=== PATIENT | female | born 1955 | race Caucasian/White ===

== ENCOUNTER → 2016-06-14 | Outpatient (CLI) | payer MEDICARE, OTHER ==
--- NOTE | 2016-06-14 09:26 | XR ---
EXAMINATION TYPE: XR lumbar spine with bend/flex DATE OF EXAM: 06/14/2016 9:19 AM CLINICAL HISTORY: Severe back pain TECHNIQUE: Frontal, lateral, and dynamic flexion and extension lateral images of the lumbar spine are obtained. COMPARISON: Lumbar spine x-ray May 20, 2014 FINDINGS: There are 5 lumbar type vertebral bodies redemonstrated. Osseous structures are deminerali zed which is noted low radiographic sensitivity Severe levoconvex scoliosis centered at mid to lower lumbar spine is again seen. There is advanced compression type fracture near lumbosacral junction red emonstrated at peak of curvature. Severe multilevel disc space narrowing there are thoracolumbar junc tion is redemonstrated. Facet arthropathy is redemonstrated in lower lumbar levels. Dynamic flexion a nd extension views show limited flexion and extension without significant change. Cholecystectomy cli ps are seen overlying soft tissue. IMPRESSION: Scoliosis and advanced degenerative changes as detailed above.
--- NOTE | 2016-06-14 09:29 | XR ---
EXAMINATION TYPE: XR thoracic spine 2V DATE OF EXAM: 06/14/2016 9:19 AM CLINICAL HISTORY: Severe mid back pain. TECHNIQUE: Frontal and lateral view of thoracic spine are obtained. COMPARISON: CTA chest January 24, 2016. FINDINGS: Thoracic spine show loss of normal thoracic kyphosis without evidence of acute fracture or dislocation. There is scoliotic curvature centered in the lumbar spine redemonstrated. Vertebral body heights are preserved. There is disc space narrowing lower thoracic levels. There is mild multilevel anterior spurring in the mid to lower lumbar spine. There is more moderate right lateral spurring in the lower thoracic spine. Visualized ribs are unremarkable. IMPRESSION: Degenerative changes as detailed above without significant change from prior chest CT.
== END | disposition home or self-care (01) ==
LOC: RADMRIMAIN 08:17
PROVIDERS: ATTEND Psychiatry & Neurology Neurology
DX: M47.816 Spondylosis without myelopathy or radiculopathy, lumbar region (principal); M51.34 Other intervertebral disc degeneration, thoracic region; M51.36 Other intervertebral disc degeneration, lumbar region; M41.9 Scoliosis, unspecified
CPT/HCPCS: 72070; 72114

== ENCOUNTER → 2019-06-01 | Outpatient (CLI) | payer MEDICARE, OTHER ==
--- NOTE | 2019-06-03 13:25 | MM ---
Reason for exam: screening (asymptomatic). Last mammogram was performed 5 years and 2 months ago. History: Patient is postmenopausal. Physical Findings: A clinical breast exam by your physician is recommended on an annual basis and results should be correlated with mammographic findings. MG 3D Screening Mammo W/Cad Bilateral CC and MLO view(s) were taken. Prior study comparison: April 10, 2014, bilateral MG diagnostic mammo w CAD [facility]. February 18, 2011, [facility] DIGITAL BILATERAL MAMMOGRAM w/CAD. There are scattered fibroglandular densities. There is chronic nodularity bilaterally. Benign oil cyst calcifications left breast. No significant changes when compared with prior studies. ASSESSMENT: Negative, BI-RAD 1 RECOMMENDATION: Routine screening mammogram of both breasts in 1 year.
== END | disposition home or self-care (01) ==
LOC: RADMAMWWP 14:42
PROVIDERS: ATTEND Internal Medicine
DX: Z12.31 Encounter for screening mammogram for malignant neoplasm of breast (principal)
CPT/HCPCS: 77063; 77067

== ENCOUNTER → 2020-03-21 | Outpatient (CLI) | payer MEDICARE, OTHER ==
[2020-03-21 09:04] VITALS: BP 119/79; PULSE 95; RESP 18; TEMP 97.6
--- NOTE | 2020-03-21 10:06 | P.HPOB ---
History of Present Illness H&P Date: 03/21/20 Chief Complaint: The patient is here for her routine gynecologic exam. This is a 64-year-old with an LMP of 2000. The patient is here to establish with this office. She states it has been about 5 years since her last pelvic exam. She has been experiencing intermittent vaginal and pelvic pains and she believes this has been occurring for the past 2 months. She describes the pains is crampy and piercing. They typically last 1 or 2 minutes and are not noticed every day. She cannot think of any activities that seem to be associated with the pains. At times he can feel severe and are rated at 6 out of 10. Currently is 0 out of 10. She is denying any urinary symptoms such as dysuria or urinary urgency. Review of Systems She denies weight change. She denies respiratory or cardiac problems. GI: She has been told she has a "slow stomach" but states she moves her bowels about once a day. : She denies urinary symptoms as above. Past Medical History Past Medical History: Fibromyalgia, GERD/Reflux, Hypertension, Musculoskeletal Disorder, Osteoarthritis (OA), Renal Disease Additional Past Medical History / Comment(s): RAYNAUD'S - AFFECTS TONGUE AND FINGERS. BACK PROBLEMS, scoliosis, sciatica down L leg, HAS 2 KIDNEY STONES ON RT SIDE, insomnia, migraines in past, diverticular dx, sinus problems, R knee "locks up" at times and has caused falls. 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 History of Any Multi-Drug Resistant Organisms: None Reported Past Surgical History: Cholecystectomy, Orthopedic Surgery, Tonsillectomy Additional Past Surgical History / Comment(s): EGDs with bx, [id number], bilateral knee arthroscopies, pain clinic procedures for back. Past Anesthesia/Blood Transfusion Reactions: Motion Sickness Past Psychological History: Anxiety, Depression Additional Psychological History / Comment(s): Pt states she lives with a friend otherwise she would be homeless. She has financial stressors. She drives. She states she has depression and anxiety but is not suicidal-no thoughts, no plans. Smoking Status: Current every day smoker (1 pack per day) Past Alcohol Use History: None Reported Additional Past Alcohol Use History / Comment(s): Pt started smoking in 1980 and was over a ppd smoker. Past 2 weeks she has decreased to 10 cigarettes a day. Past Drug Use History: Marijuana Additional Drug Use History / Comment(s): Pt states she occasionally will smoke medical marijuana. Additional History: She is and is not seeing anybody at this time. She has not been sexually active since around 2009. 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 - Past Family History Father Family Medical History: Cancer Additional Family Medical History / Comment(s): Prostate cancer. Mother Family Medical History: Dementia, Hyperlipidemia, Osteoarthritis (OA) Additional Family Medical History / Comment(s): Maternal grandmother had an OR. Medications and Allergies Home Medications Medication Instructions Recorded Confirmed Type Esomeprazole Magnesium [NexIUM] 40 mg PO W/SUPPER 04/10/14 03/21/20 History oxyCODONE HCL [Oxycodone HCl ER] 10 mg PO TID 04/17/14 03/21/20 History QUEtiapine [SEROquel] 200 mg PO HS 09/13/14 03/21/20 History Ibuprofen [Motrin] 200 - 400 mg PO Q6HR PRN 01/24/16 03/21/20 History Baclofen 10 mg PO HS 03/21/20 03/21/20 History Multivitamin/Iron/Folic Acid 1 each PO DAILY 03/21/20 03/21/20 History [Centrum Women Tablet] Allergies Allergy/AdvReac Type Severity Reaction Status Date / Time Penicillins Allergy Unknown Swelling Verified 03/21/20 09:01 Sulfa (Sulfonamide Allergy Unknown Swelling Verified 03/21/20 09:01 Antibiotics) Exam Vital Signs Temp Pulse Resp BP Pulse Ox 03/21/20 09:01 97.6 F 95 18 119/79 95 Intake and Output 03/20/20 03/21/20 03/21/20 22:59 06:59 14:59 Other: Weight 69.853 kg Height 5 feet 3 inches, weight 154 pounds, BMI 27.3. This is a well-developed well-nourished white female who is alert and oriented times 3 in no acute distress. HEENT: Within normal limits. NECK: Supple without mass or thyromegaly. CHEST AND LUNGS: Clear to auscultation. HEART: Regular rate and rhythm. BREASTS: Are without mass or discharge. AXILLARY EXAM: Negative for adenopathy. BACK: Negative for CVA tenderness. ABDOMEN: Soft, nontender, without palpable masses. PELVIC EXAM: Normal external genitalia with mild atrophy. Cervix and vagina appear normal is mild atrophy. There is no cervical motion tenderness. There is no unusual discharge. There is no evidence of prolapse. The uterus is midposition, mildly enlarged approximately 8-10 week size and nontender. There are no palpable adnexal masses or tenderness. RECTAL EXAM: Rectovaginal exam is negative for mass or tenderness and is negative for occult blood. EXTREMITIES: Nontender. IMPRESSION: 1. 64-year-old menopausal female with a 2 month history of intermittent pelvic pains which are described as crampy and occasionally piercing. There are no significant physical findings at this time and she denies having pain at this time. Differential diagnosis will include GI pain, non-palpable adnexal mass, discomfort from a uterine fibroid and possible urinary tract infection. 2. Mild uterine enlargement approximately 8-10 weeks size. Possible uterine fibroids. PLAN: 1. Pap smear cotest was performed. 2. Self breast awareness was discussed with the patient. 3. Screening mammogram will be due in May 2020. The order slip was given to the patient for this. She had a normal mammogram on 06/01/2019. 4. Urine has been obtained for urinalysis with culture and sensitivity. 5. Pelvic ultrasound is recommended and the order slip was given to the patient for this. 6. If the pelvic ultrasound and urine testing is negative, I would believe that her pain is non-gynecologic and more likely GI related. 7. I have recommended that she quit smoking. 8. She was advised to return in one year for her annual well woman exam and as needed.
--- NOTE | 2020-03-22 15:47 | P.PN ---
Progress Note - Text Progress Note Date: 03/22/20 Urinalysis done 03/21/20 had minor findings without definitive signs of a UTI. Will await urine culture. This message was left on the patiet's voice mail. Pelvic US is scheduled for 03/27/20.
--- NOTE | 2020-03-28 10:26 | P.PN ---
Progress Note - Text Progress Note Date: 03/28/20 OUTPATIENT FOLLOW-UP NOTE TEST(S)/RESULTS: Test results from 03/21/2020 include negative Pap smear cotest, urinalysis showing trace leukocyte esterase and small amount of blood and 7 rbc's per high-power field. Urine culture was negative. Pelvic ultrasound showed a normal endometrial thickness of 0.1 cm with minimal endometrial fluid. The ultrasound was otherwise unremarkable. METHOD OF NOTIFICATION: The patient was notified by phone. PATIENT COMMENTS: The patient states she has a history of kidney stones that passed and her symptoms did not resemble the pains that she has described occurring over the past 2 months. DIAGNOSIS: Negative Pap smear cotest, pelvic ultrasound which is unremarkable except for minimal endometrial fluid. Microscopic small hematuria with negative urine culture. DISCUSSION: At this time I do not believe the pelvic ultrasound is demonstrating any gynecologic etiology for her crampy vaginal and pelvic pains. Kidney stones are possible and could be a cause for the microscopic hematuria, but I do not believe this is likely to be the cause for her pains. The small amount of red blood cells may be related to the Pap smear and pelvic exam that was done just prior to obtaining the urine specimen. We will plan on repeating the urinalysis approximate 2 weeks. She was also encouraged to drink plenty of fluids in the off chance that there are small kidney stones. She was also instructed to call if she develops any postmenopausal bleeding. She denies any postmenopausal bleeding at this time. PLAN: As above. The order slip for the urinalysis will be mailed to the patient (Dx R31.2)
== END | disposition home or self-care (01) ==
LOC: WWCWWP 08:49
PROVIDERS: ATTEND Obstetrics & Gynecology
DX: Z53.9 Procedure and treatment not carried out, unspecified reason (principal)

== ENCOUNTER → 2020-03-27 | Outpatient (CLI) | payer MEDICARE, OTHER ==
--- NOTE | 2020-03-27 09:10 | US ---
EXAMINATION TYPE: US pelvis complete transvag DATE OF EXAM: 03/27/2020 COMPARISON: US 2014 CLINICAL HISTORY: R10.2 PELVIC PAIN. TECHNIQUE: Transvaginal (TV) and Transabdominal (TA) . Transabdominal sonographic images of the pel vis were acquired. Transvaginal sonographic images were medically necessary to better assess the fol lowing anatomy: uterus and ovaries. Date of LMP: post menopausal, no HRT. EXAM MEASUREMENTS: Uterus: 5.9 x 2.2 x 4.3 cm Endometrial Stripe: 0.1 cm Right Ovary: 1.4 x 1.3 x 1.9 cm Left Ovary: 1.8 x 1.4 x 2.1 cm 1. Uterus: Anteverted wnl 2. Endometrium: Minimal fluid within the canal. 3. Right Ovary: wnl 4. Left Ovary: wnl 5. Bilateral Adnexa: extensive bowel noted left adnexa 6. Posterior cul-de-sac: no free fluid IMPRESSION: 1. Minimal fluid within the endometrial canal. 2. Pelvic ultrasound is otherwise unremarkable.
== END | disposition home or self-care (01) ==
LOC: RADUSWWP 08:26
PROVIDERS: ATTEND Obstetrics & Gynecology
DX: R10.2 Pelvic and perineal pain (principal)
CPT/HCPCS: 76830; 76856

== ENCOUNTER → 2020-06-12 | Outpatient (CLI) | payer MEDICARE, OTHER ==
--- NOTE | 2020-06-14 08:40 | MM ---
Reason for exam: screening (asymptomatic). Last mammogram was performed 1 year ago. History: Patient is postmenopausal. Physical Findings: A clinical breast exam by your physician is recommended on an annual basis and results should be correlated with mammographic findings. MG 3D Screening Mammo W/Cad Bilateral CC and MLO view(s) were taken. Prior study comparison: June 01, 2019, bilateral MG 3d screening mammo w/cad. April 10, 2014, bilateral MG diagnostic mammo w CAD [facility]. There are scattered fibroglandular densities. There are benign appearing round calcifications in the left breast. There is chronic nodularity bilaterally. No significant changes when compared with prior studies. ASSESSMENT: Benign, BI-RAD 2 RECOMMENDATION: Routine screening mammogram of both breasts in 1 year.
== END ==
LOC: RADMAMWWP 09:42
PROVIDERS: ATTEND Internal Medicine
DX: Z12.31 Encounter for screening mammogram for malignant neoplasm of breast (principal); Z78.0 Asymptomatic menopausal state
CPT/HCPCS: 77063; 77067

== ENCOUNTER → 2021-08-06 | Outpatient (CLI) | payer MEDICARE, OTHER ==
[2021-08-06 09:38] VITALS: BP 146/88; PULSE 83; RESP 16; TEMP 97.9
--- NOTE | 2021-08-06 10:19 | P.HPOB ---
History of Present Illness H&P Date: 08/06/21 Chief Complaint: The patient is here for her routine gynecologic exam and ma mmogram. This is a 66-year-old with an LMP of 1999. The patient is without gynecologic complaints and denies any postmenopausal bleeding. She denies any pelvic pain. Review of Systems The patient has lost 15 pounds over the last year. She denies respiratory, cardiac, or G.I. problems. : She denies any blood in her urine. Past Medical History Past Medical History: Fibromyalgia, GERD/Reflux, Hypertension, Musculoskeletal Disorder, Osteoarthritis (OA), Renal Disease Additional Past Medical History / Comment(s): RAYNAUD'S - AFFECTS TONGUE AND FINGERS. BACK PROBLEMS, scoliosis, sciatica down L leg, HAS 2 KIDNEY STONES ON RT SIDE, insomnia, migraines in past, diverticular dx, sinus problems, R knee "locks up" at times and has caused falls. Chronic back pain. 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 History of Any Multi-Drug Resistant Organisms: None Reported Past Surgical History: Cholecystectomy, Tonsillectomy Additional Past Surgical History / Comment(s): EGDs with bx, colonoscopy, bilateral knee arthroscopies, pain clinic procedures for back. Colonoscopy 2013. Past Anesthesia/Blood Transfusion Reactions: Motion Sickness Past Psychological History: Anxiety, Depression Additional Psychological History / Comment(s): Pt states she lives with a friend otherwise she would be homeless. She has financial stressors. She drives. She states she has depression and anxiety but is not suicidal-no thoughts, no plans. Smoking Status: Current every day smoker (Less than one pack per day.) Past Alcohol Use History: None Reported Additional Past Alcohol Use History / Comment(s): Pt started smoking in 1980 and was over a ppd smoker. Past 2 weeks she has decreased to 10 cigarettes a day. Past Drug Use History: Marijuana Additional Drug Use History / Comment(s): Pt states she occasionally will smoke medical marijuana. Additional History: She is and is not seeing anybody at this time. She has not been sexually active since around 2009. 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 - Past Family History Father Family Medical History: Cancer Additional Family Medical History / Comment(s): Prostate cancer. Mother Family Medical History: Dementia, Hyperlipidemia, Osteoarthritis (OA) Additional Family Medical History / Comment(s): Maternal grandmother had an MD. Medications and Allergies Home Medications Medication Instructions Recorded Confirmed Type Esomeprazole Magnesium [NexIUM] 40 mg PO W/SUPPER 04/10/14 08/06/21 History oxyCODONE HCL [Oxycodone HCl ER] 10 mg PO TID 04/17/14 08/06/21 History QUEtiapine [SEROquel] 200 mg PO HS 09/13/14 08/06/21 History Ibuprofen [Motrin] 200 - 400 mg PO Q6HR PRN 01/24/16 08/06/21 History Baclofen 10 mg PO HS 03/21/20 08/06/21 History Multivitamin/Iron/Folic Acid 1 each PO DAILY 03/21/20 08/06/21 History [Centrum Women Tablet] Allergies Allergy/AdvReac Type Severity Reaction Status Date / Time Penicillins Allergy Unknown Swelling Verified 08/06/21 09:32 Sulfa (Sulfonamide Allergy Unknown Swelling Verified 08/06/21 09:32 Antibiotics) Exam Vital Signs Temp Pulse Resp BP Pulse Ox 08/06/21 09:35 97.9 F 83 16 146/88 98 Intake and Output 08/05/21 08/06/21 08/06/21 22:59 06:59 14:59 Other: Weight 63.049 kg Height 5 feet 3 inches, weight 139 pounds, BMI 24.6. This is a well-developed well-nourished white female who is alert and oriented times 3 in no acute distress. HEENT: Within normal limits. NECK: Supple without mass or thyromegaly. CHEST AND LUNGS: Clear to auscultation. HEART: Regular rate and rhythm. BREASTS: Are without mass or discharge. She has benign-appearing skin inclusion cysts, 1 on each breast. On the right breast it measures approximately 8 mm and is at the 8 o'clock position. On the left breast measures about 8 mm and is at the 2 o'clock position. She states she has had these for many years. AXILLARY EXAM: Negative for adenopathy. BACK: Negative for CVA tenderness. ABDOMEN: Soft, nontender, without palpable masses. PELVIC EXAM: Normal external genitalia with mild to moderate atrophy. Cervix and vagina appear normal with mild atrophy. There is no unusual discharge. There is no evidence of prolapse. The uterus is midposition, nongravid size and nontender. There are no palpable adnexal masses or tenderness. RECTAL EXAM: Rectovaginal exam is negative for mass or tenderness and is negative for occult blood. EXTREMITIES: Nontender. IMPRESSION: 1. 66-year-old menopausal female with normal gynecologic exam. 2. History of microscopic hematuria from a urinalysis done in February 2020. No current urinary symptoms. PLAN: 1. Pap smear was deferred since she had a normal one on 03/21/2020. 2. Self breast awareness was discussed with the patient. We have also discussed symptoms associated with inflammatory breast cancer. 3. Screening mammogram will be done today. 4. Clean catch midstream urinalysis will be obtained. 5. I recommended that she quit smoking. We've discussed many reasons why this is important. Information on quitting smoking was given to the patient. She can also discuss this with her PCP. 6. She has completed her covert vaccination series and did receive a booster. 7.Osteoporosis prevention was discussed. I have stressed the importance of adequate calcium, vitamin D and regular exercise. Recommended amounts of calcium and vitamin D were also discussed. I have recommended bone density testing since she has never had this done. The order slip will be given to the patient. 8. She was advised to return in one year for her annual well woman exam.
[2021-08-06 23:58] LABS: Appearance,Urine Clear (Clear); Bilirubin,Urine Negative (Negative); Blood,Urine Large (Negative); Color,Urine Yellow (Yellow); Ketones,Urine Trace mg/dL (Negative); Nitrite,Urine Negative (Negative); PH, Urine 6.5 (5.0-8.0)
[2021-08-07 00:16] LABS: Bacteria,Urine None Seen /HPF (None Seen)
--- NOTE | 2021-08-07 12:02 | P.PN ---
Progress Note - Text Progress Note Date: 08/07/21 OUTPATIENT FOLLOW-UP NOTE TEST(S)/RESULTS: Urinalysis done on 08/06/2021 showed large blood and trace leukocyte esterase. METHOD OF NOTIFICATION: The patient was notified by phone. PATIENT COMMENTS: She denies any urinary problems or urinary tract infection symptoms. She has a history of kidney stones, but does not believe she saw a urologist at that time. She denies any kidney stone symptoms. DIAGNOSIS: Asymptomatic Microscopic hematuria. DISCUSSION: The patient had a previous urinalysis with RBCs and negative urine culture on 03/21/2020 and this was the reason the urinalysis was repeated. She did not repeat the urinalysis as recommended at that time and did not have follow-up. PLAN: The patient will be referred to Dr. Trevizo, the urologist for further evaluation of the microscopic hematuria.
--- NOTE | 2021-08-08 09:11 | MM ---
Reason for exam: screening (asymptomatic). Last mammogram was performed 1 year and 2 months ago. History: Patient is postmenopausal. Physical Findings: A clinical breast exam by your physician is recommended on an annual basis and results should be correlated with mammographic findings. MG 3D Screening Mammo W/Cad Bilateral CC and MLO view(s) were taken. Prior study comparison: June 12, 2020, bilateral MG 3d screening mammo w/cad. June 01, 2019, bilateral MG 3d screening mammo w/cad. The breast tissue is heterogeneously dense. This may lower the sensitivity of mammography. Benign appearing bilateral calcifications. There is chronic nodularity bilaterally. No significant changes when compared with prior studies. ASSESSMENT: Benign, BI-RAD 2 RECOMMENDATION: Routine screening mammogram of both breasts in 1 year.
== END ==
LOC: WWCWWP 09:26
PROVIDERS: ATTEND Obstetrics & Gynecology
DX: Z12.31 Encounter for screening mammogram for malignant neoplasm of breast (principal); Z01.419 Encounter for gynecological examination (general) (routine) without abnormal findings; Z78.0 Asymptomatic menopausal state; I10 Essential (primary) hypertension; Z87.448 Personal history of other diseases of urinary system; F32.A Depression, unspecified; F41.9 Anxiety disorder, unspecified; F17.210 Nicotine dependence, cigarettes, uncomplicated; Z88.0 Allergy status to penicillin; Z88.2 Allergy status to sulfonamides
CPT/HCPCS: 77063; 77067; 81001

== ENCOUNTER → 2021-09-11 | Outpatient (CLI) | payer MEDICARE, OTHER ==
--- NOTE | 2021-09-11 15:58 | CT ---
EXAMINATION TYPE: CT abdomen pelvis wo con DATE OF EXAM: 09/11/2021 COMPARISON: CT dated 07/26/2010 HISTORY: gross hematuria x1 year. Hx of kidney stones CT DLP: 343.50 mGycm Automated exposure control for dose reduction was used. TECHNIQUE: Helical acquisition of images was performed from the lung bases through the pelvis. FINDINGS: LUNG BASES: No significant abnormality is appreciated. LIVER/GB: Previous cholecystectomy. Grossly unremarkable liver. PANCREAS: No significant abnormality is seen. SPLEEN: No significant abnormality is seen. ADRENALS: No significant abnormality is seen. KIDNEYS: Multiple nonobstructing right renal calculi measuring up to 8mm at the lower pole. 4 mm nono bstructing calculus seen at the midportion of the left kidney. Grossly unremarkable kidneys otherwise . FREE AIR: No free air is visualized RETROPERITONEAL ADENOPATHY: None visualized REPRODUCTIVE ORGANS: No gross uterine or adnexal mass. URINARY BLADDER: Nondistended. PELVIC ADENOPATHY: No pathologically enlarged pelvic lymph nodes. OSSEOUS STRUCTURES: Severe dextroscoliosis of the upper lumbar spine with marked degenerative change s, osteopenia and multilevel vertebral fusion. Mild degenerative changes of the sacroiliac joints. BOWEL: No significant abnormality is seen. OTHER: Arterial atherosclerotic calcifications. No sizable ascites. IMPRESSION: Bilateral renal calculi and other incidental findings as detailed above.
== END | disposition home or self-care (01) ==
LOC: RADCTMAIN 14:03
PROVIDERS: ATTEND Urology
DX: N20.0 Calculus of kidney (principal)
CPT/HCPCS: 74176

== ENCOUNTER → 2021-11-12 | Outpatient (CLI) | payer MEDICARE, OTHER ==
[2021-11-12 14:41] LABS: Basophils # (A) 0.04 X 10*3/uL (0.00-0.10); Basophils % (A) 0.6 %; Eosinophils # (A) 0.04 X 10*3/uL (0.04-0.35); Eosinophils % (A) 0.6 %; HCT 44.7 % (37.2-46.3); HGB 15.1 g/dL (12.0-15.0); Immature Grans, Automated 0.6 %; Lymphocytes # (A) 2.03 X 10*3/uL (0.90-5.00); Lymphocytes % (A) 31.8 %; MCH 31.8 pg (27.0-32.0); MCHC 33.8 g/dL (32.0-37.0); MCV 94.1 fL (80.0-97.0); Mean Platelet Volume 9.9 fL (9.5-12.2); Monocytes # (A) 0.48 X 10*3/uL (0.20-1.00); Monocytes % (A) 7.5 %; NRBC Per 100 WBC 0 /100 WBCS (0.0-0.0); Neutrophils # (A) 3.76 X 10*3/uL (1.80-7.70); Neutrophils % (A) 58.9 %; Platelet Count 220 X 10*3/uL (140-440); RBC 4.75 X 10*6/uL (4.10-5.20); RDW 13.3 % (11.5-14.5); WBC 6.39 X 10*3/uL (4.50-10.00)
[2021-11-12 14:42] LABS: Anion Gap 10.8 mmol/L (10.00-18.00); BUN/Creat Ratio 10.75 Ratio (12.00-20.00); Blood Urea Nitrogen 8.6 mg/dL (9.0-27.0); Carbon Dioxide 24.2 mmol/L (20.0-27.5); Non-African American GFR(CKD) 76.8 (60.0-200.0); Potassium 4.3 mmol/L (3.5-5.5)
== END | disposition home or self-care (01) ==
LOC: LABPAT 10:24
PROVIDERS: ATTEND Urology
DX: Z01.812 Encounter for preprocedural laboratory examination (principal); N20.0 Calculus of kidney
CPT/HCPCS: 80048; 85025

== ENCOUNTER → 2022-02-10 | Outpatient (CLI) | payer MEDICARE, OTHER | END | disposition home or self-care (01) | LOC: RADUSWWP 16:22 | PROVIDERS: ATTEND Urology | DX: Z53.9 Procedure and treatment not carried out, unspecified reason (principal) ==

== ENCOUNTER → 2022-10-10 | Outpatient (CLI) | payer MEDICARE, OTHER ==
--- NOTE | 2022-10-13 08:56 | MM ---
Reason for Exam: Screening (asymptomatic). Last mammogram was performed 1 year(s) and 2 month(s) ago. Patient History: Menarche at age 14. First Full-Term at age 21. Postmenopausal. Risk Values: Ivania 5 year model risk: 1.4%. NCI Lifetime model risk: 4.8%. Prior Study Comparison: 06/01/2019 Bilateral Screening Mammogram, [facility]. 06/12/2020 Bilateral Screening Mammogram, [facility]. 08/06/2021 Bilateral Screening Mammogram, [facility]. Tissue Density: The breast tissue is almost entirely fat. Findings: Analyzed By CAD. Benign-appearing left breast ossifications. There is no suspicious group of microcalcifications or new suspicious mass in either breast. Overall Assessment: Benign, BI-RAD 2 Management: Screening Mammogram of both breasts in [address] [facility] will attempt to contact patient to return for supplemental views and ultrasound if indicated. Patient should continue monthly self-breast exams. A clinical breast exam by your physician is recommended on an annual basis. This exam should not preclude additional follow-up of suspicious palpable abnormalities. Note on Ivania scores and lifetime risk: 1. A Ivania score greater than 3% is considered moderate risk. If this is the case, consider specialist referral to assess eligibility for a risk reducing agent. 2. If overall lifetime risk for the development of breast cancer is 20% or higher, the patient may qualify for future screening with alternating mammogram and breast MRI. Electronically signed and approved by: Sumanth Kim DO
== END | disposition home or self-care (01) ==
LOC: RADMAMWWP 07:55
PROVIDERS: ATTEND Internal Medicine
DX: Z12.31 Encounter for screening mammogram for malignant neoplasm of breast (principal); Z78.0 Asymptomatic menopausal state
CPT/HCPCS: 77063; 77067

== ENCOUNTER → 2023-05-14 | Outpatient (CLI) | payer MEDICARE, OTHER ==
--- NOTE | 2023-05-15 09:42 | XR ---
EXAMINATION TYPE: XR KUB DATE OF EXAM: 05/14/2023 3:49 PM CLINICAL INDICATION:Female, 68 years old with history of N20.0 Calculus kidney; [facility] COMPARISON: 11/21/2021. TECHNIQUE: One radiographic view of the abdomen was obtained. FINDINGS: The bowel gas pattern is nonspecific without dilated loops of small or large bowel. There i s no evidence for organomegaly or pneumoperitoneum. The osseous structures are intact. Renal calculi seen on prior are not well visualized. No abnormal calcifications are present. Fecal material and ga s are demonstrated throughout the colon and rectum. Degeneration changes with scoliosis of spine. Ri ght upper quadrant course significance. Pelvic phleboliths are present. IMPRESSION: 1. Poor visualization of prior calculi due to overlapping bowel. 2. Nonspecific bowel gas pattern without radiographic evidence for acute process.
== END | disposition home or self-care (01) ==
LOC: RADXRMAIN 15:34
PROVIDERS: ATTEND Urology
DX: N20.0 Calculus of kidney (principal)
CPT/HCPCS: 74018

== ENCOUNTER → 2023-05-21 | Outpatient (CLI) | payer MEDICARE, OTHER ==
--- NOTE | 2023-05-21 15:03 | CT ---
EXAMINATION TYPE: CT abdomen pelvis wo con DATE OF EXAM: 05/21/2023 COMPARISON: 09/11/2021 INDICATION: LT flank pain, hx renal stones DLP: 421.30 mGycm, Automated exposure control for dose reduction was used. CONTRAST: 0 mL of Isovue 300. Study performed without Oral Contrast TECHNIQUE: Axial images were obtained from above the diaphragm to the pubic rami in the axial plane a t 5 mm thick sections. Reconstructed images are reviewed on the computer in the coronal plane. FINDINGS: Limited CT sections are obtained the lung bases. The lung bases are clear. CT ABDOMEN: Liver: Normal Spleen: Normal Pancreas: Normal Adrenal glands: The adrenal glands are normal. Gallbladder: Surgically absent Kidneys: No masses are evident. No hydronephrosis is present. No cysts are present. There is a non obstructing 0.4 cm mid posterior left renal calcification. Previous right renal stones are absent. Aorta: Vascular calcification is within the aorta. Inferior vena cava: Normal. CT PELVIS: There is a 1.3 cm small abdominal wall hernia in the superior periumbilical region. This m ay contain a small vessel. No loops of bowel are identified. Loops of bowel within the abdomen and pelvis are normal. There are loops of bowel which are incom pletely distended or lack oral contrast limiting their evaluation. Appendix: Normal as visualized. Urinary bladder: Normal. Genitourinary structures: Uterus and ovaries are not identified. Osseous structures: No suspicious lytic or sclerotic lesions. IMPRESSION: 1. Nonobstructing 0.4 cm mid posterior left renal stone. 2. Small stable periumbilical hernia without loops of bowel involved.
== END | disposition home or self-care (01) ==
LOC: RADCTMAIN 09:38
PROVIDERS: ATTEND Urology
DX: N20.0 Calculus of kidney (principal); K42.9 Umbilical hernia without obstruction or gangrene; N23 Unspecified renal colic
CPT/HCPCS: 74176

== ENCOUNTER → 2023-05-26 | Outpatient (CLI) | payer MEDICARE, OTHER ==
[2023-05-27 03:07] LABS: BUN/Creat Ratio 10.56 Ratio (12.00-20.00); Blood Urea Nitrogen 9.5 mg/dL (9.0-27.0); Calcium 9.1 mg/dL (8.7-10.3); Carbon Dioxide 27.1 mmol/L (21.6-31.8); Chloride 102 mmol/L (96-109); Glucose 135 mg/dL (70-110); Potassium 4.2 mmol/L (3.5-5.5); Sodium 139 mmol/L (135-145)
[2023-05-27 04:22] LABS: Appearance,Urine Clear (Clear); Bilirubin,Urine Negative (Negative); Blood,Urine Negative (Negative); Color,Urine Yellow (Yellow); Ketones,Urine Negative (Negative); Nitrite,Urine Negative (Negative); Specific Gravity,Urine 1.005 (1.001-1.030); Urobilinogen,Urine 0.2 E.U./DL
[2023-05-27 04:52] LABS: Basophils # (A) 0.04 X 10*3/uL (0.00-0.10); Basophils % (A) 0.6 %; Eosinophils # (A) 0.08 X 10*3/uL (0.04-0.35); Eosinophils % (A) 1.2 %; HCT 45.3 % (37.2-46.3); HGB 14.8 g/dL (12.0-15.0); Lymphocytes # (A) 2.52 X 10*3/uL (0.90-5.00); Lymphocytes % (A) 37.9 %; MCH 31.6 pg (27.0-32.0); MCHC 32.7 g/dL (32.0-37.0); MCV 96.6 FL (80.0-97.0); Mean Platelet Volume 10.7 FL (9.5-12.2); Monocytes # (A) 0.47 X 10*3/uL (0.20-1.00); Monocytes % (A) 7.1 %; NRBC Per 100 WBC 0 X 10*3/uL (0.00-0.01); Neutrophils # (A) 3.52 X 10*3/uL (1.80-7.70); Neutrophils % (A) 52.9 %; Platelet Count 220 X 10*3/uL (140-440); RBC 4.69 X 10*6/uL (4.10-5.20); RDW 13.2 % (11.5-14.5); WBC 6.65 X 10*3/uL (4.50-10.00)
== END | disposition home or self-care (01) ==
LOC: LABPAT 14:42
PROVIDERS: ATTEND Urology
DX: Z01.812 Encounter for preprocedural laboratory examination (principal); N20.0 Calculus of kidney
CPT/HCPCS: 80048; 81003; 85025

== ENCOUNTER 2023-05-28 10:18 | Day surgery (SDC) | payer MEDICARE, OTHER ==
--- NOTE | 2023-05-27 20:50 | P.GSHP ---
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 She underwent ureteroscopic removal of multiple right renal calculi in October 2021. She has experienced left flank discomfort for the past [address] scan shows a 4 mm left renal calculus, which is not seen a plain radiograph. - Constitutional Constitutional: Denies chills, Denies fever - Gastrointestinal Gastrointestinal: Denies nausea, Denies vomiting - Genitourinary (Female) Genitourinary: Reports flank pain, Reports kidney stones, Denies dysuria, Denies hematuria Past Medical History Past Medical History: COPD, Fibromyalgia, GERD/Reflux, Hypertension, Musculoskeletal Disorder, Osteoarthritis (OA), Renal Disease Additional Past Medical History / Comment(s): RAYNAUD'S - AFFECTS TONGUE AND FINGERS. BACK PROBLEMS, scoliosis, sciatica down L leg, kidney stones, insomnia, migraines in past, diverticular dx, sinus problems, Chronic back pain. History of Any Multi-Drug Resistant Organisms: None Reported Past Surgical History: Cholecystectomy, Orthopedic Surgery, Tonsillectomy Additional Past Surgical History / Comment(s): EGDs with bx, colonoscopies, bilateral knee arthroscopies, pain clinic procedures for back. Past Anesthesia/Blood Transfusion Reactions: Motion Sickness Smoking Status: Current every day smoker - Past Family History Father Family Medical History: Cancer Additional Family Medical History / Comment(s): Prostate and bladder cancer. Mother Family Medical History: Dementia, Hyperlipidemia, Osteoarthritis (OA) Additional Family Medical History / Comment(s): Maternal grandmother had an AR. Medications and Allergies Home Medications Medication Instructions Recorded Confirmed Type Esomeprazole Magnesium [NexIUM] 40 mg PO HS 04/10/14 05/26/23 History oxyCODONE HCL [Oxycodone HCl ER] 10 mg PO TID 04/17/14 05/26/23 History QUEtiapine [SEROquel] 400 mg PO HS 09/13/14 05/26/23 History Baclofen 10 mg PO HS 03/21/20 05/26/23 History Multivitamin/Iron/Folic Acid 1 each PO DAILY 03/21/20 05/26/23 History [Centrum Women Tablet] Albuterol Sulfate [Ventolin HFA] 1 - 2 puff INHALATION Q6H PRN 05/26/23 05/26/23 History Potassium Citrate [Urocit-K] 15 meq PO TID 05/26/23 05/26/23 History Umeclidinium [place] [Incruse 1 puff INHALATION DAILY PRN 05/26/23 05/26/23 History Ellipta] Allergies Allergy/AdvReac Type Severity Reaction Status Date / Time Penicillins Allergy Unknown Swelling Verified 05/26/23 10:31 Sulfa (Sulfonamide Allergy Unknown Swelling Verified 05/26/23 10:31 Antibiotics) Surgical - Exam - General well developed, well nourished, no distress - Respiratory normal respiratory effort - Psychiatric oriented to time, oriented to person, oriented to place, speech is normal, memory intact Results - Imaging CT scan - abdomen: report reviewed, image reviewed Assessment and Plan (1) Calculus of kidney Status: Acute Code(s): N20.0 - CALCULUS OF KIDNEY SNOMED Code(s): 90643493 Plan: The patient has elected to undergo ureteroscopic removal of her left renal calculus. Specifically, she will undergo cystoscopy, left retrograde pyelogram, left ureteroscopy with Holmium laser lithotripsy and possible stone basketing, left ureteral stent insertion. The procedure has been reviewed in detail, and she is aware of potential risks which include anesthesia, bleeding, infection, inability to remove the calculus, and ureteral injury.
[~2023-05-28 10:18] MED LIST: HYDROmorphone 0.5 MG/0.5 ML SYRINGE IVP PRN
--- NOTE | 2023-05-28 11:05 | XR ---
EXAMINATION TYPE: XR KUB DATE OF EXAM: 05/28/2023 10:36 AM CLINICAL INDICATION:Female, 68 years old with history of Left Renal Calculus N20.0; COMPARISON: 05/14/2023. TECHNIQUE: One radiographic view of the abdomen was obtained. FINDINGS: The bowel gas pattern is nonspecific without dilated loops of small or large bowel. There i s no evidence for organomegaly or pneumoperitoneum. The osseous structures are intact. Calculus dens ity measuring 4 mm projects over the left kidney. Fecal material and gas are demonstrated throughout the colon and rectum. Right upper lobe quadrant cholecystectomy clips. Severe degeneration spine with scoliosis. IMPRESSION: The evaluation due to bowel gas. There may be a small left calculus measuring 4 mm. Severe scoliosis of the spine with degeneration. Nonspecific bowel gas pattern without radiographic evidence for acute process.
[2023-05-28] MEDS: LIDOCAINE 1% (10MG/ML) FOR IV START INTRADERMA PRN (11:31)
[2023-05-28] MEDS: DEXAMETHASONE SOD PHOSPHATE 4 MG/ML 1 ML VIAL IV ONE (11:31)
[2023-05-28] MEDS: LACTATED RINGERS 1,000 ML IV SCH (11:31)
[2023-05-28] MEDS: ONDANSETRON 4 MG/2 ML VIAL IVP ONE (11:32)
[2023-05-28] MEDS: MIDAZOLAM 2 MG/2 ML VIAL IV PRN (11:39)
[2023-05-28] MEDS ORDERED: PROPOFOL 10 MG/ML 20 ML VIAL IV ONE (11:59)
[2023-05-28] MEDS ORDERED: ceFAZolin 1 GM/50 ML BAG (PMX) ONE (11:59)
[2023-05-28] MEDS ORDERED: SUCCINYLCHOLINE CHLORIDE 200 MG/10 ML VIAL IV ONE (11:59)
[2023-05-28] MEDS ORDERED: LIDOCAINE 1% INJ 10MG/ML (20 ML MDV) ONE (11:59)
[2023-05-28] MEDS ORDERED: fentaNYL (PF) 50 MCG/ML 2 ML AMP ONE (11:59)
[2023-05-28] MEDS: SODIUM CHLORIDE 0.9% 50 ML with ceFAZolin 2,000 MG IV ONE (12:03)
--- NOTE | 2023-05-28 12:54 | P.OP ---
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 She underwent ureteroscopic removal of multiple right renal calculi in October 2021. She has experienced left flank discomfort for the past [address] scan shows a 4 mm left renal calculus, which is poorly seen on a plain radiograph. Operative Findings: 4 mm left mid to upper pole calculus, removed completely. Description of Procedure: The patient was taken to the operating room and placed in the dorsolithotomy position, with legs supported in Hawk stirrups. The external genitalia was prepped and draped sterilely. The 30 lens was used to introduce the 21-Kyrgyz Mcmahon cystoscopic sheath through the urethra and into the bladder under direct vision. The bladder was examined in its entirety. Both ureteral orifices were normal anatomic location and configuration, and clear urine effluxed from both. No tumors or foreign bodies were seen. Using a 10 Kyrgyz cone-tip catheter, a left retrograde pyelogram was performed. The ureter was followed on fluoroscopy and was normal in course and caliber. There was no evidence of hydronephrosis. No filling defects were seen. A 0.038 inch Glidewire was passed through the cystoscope. The left ureteral orifice was cannulated, and the Glidewire was advanced up to the renal pelvis. The cystoscope was removed, and an 11/13-Kyrgyz ureteral access catheter was passed over the wire, up to the proximal ureter. The flexible ureteroscope was then passed through the ureteral access catheter sheath, up to the renal pelvis. Each calyx was examined. The only calculus seen was a 4 mm calculus within the left mid to upper pole calyx. The 200 micron Holmium laser probe was passed through the ureteroscope, and lithotripsy was performed. This calculus broke into 3 fragments, each of which were removed using a 1.9 Kyrgyz 0 tip nitinol basket. The ureteroscope was then removed. The Glidewire was passed through the ureteral access catheter sheath, which was removed. The Glidewire was backloaded into the cystoscope, which was passed into the bladder. A 24 cm, 4.8 Kyrgyz double-J ureteral stent was placed over the wire. Proper stent positioning was verified fluoroscopically and endoscopically. The bladder was emptied and the cystoscope removed. The patient tolerated the procedure well and was taken to the recovery room in stable condition. [facility] [place] Report: Procedure Acuity: Elective Stone Size and Location: 4 mm, left midpole Ureteral Dilation: No Ureteral Access Sheath Used: Yes Stone Sent for Analysis: No All Stones/Fragments Were Removed with a Basket: Yes Complications: No Preoperative Antibiotics Given: Yes Stent Placed: Yes If Stent Placed, Was String Left Attached: No If Stent Placed, When is it to be Removed: 2 weeks Discharge Medications: Toradol, tamsulosin, oxybutynin chloride
[2023-05-28 13:18] VITALS: TEMP 97
[2023-05-28] MEDS: HYDROmorphone 0.5 MG/0.5 ML SYRINGE IVP ONE (13:35)
[2023-05-28] MEDS: hydrALAZINE HCL 20 MG/ML 1 ML VIAL IVP ONE (13:41)
[2023-05-28] MEDS: LACTATED RINGERS 1,000 ML IV ONE (14:08)
[2023-05-28 14:57] VITALS: BP 151/82; PULSE 66; RESP 17
--- NOTE | 2023-05-29 08:18 | FL ---
EXAMINATION TYPE: FL urography retrograde Intraoperative/procedural fluoroscopic services were provid ed. Total fluoroscopy time is 38.2 seconds with a total of 8 submitted images to PACS. Please see the operative/procedural note for further details. DAP: [id number] mGym2
== END 2023-05-28 15:00 | disposition home or self-care (01) ==
LOC: OR 10:18
PROVIDERS: ATTEND Urology
DX: N20.0 Calculus of kidney (principal); J44.9 Chronic obstructive pulmonary disease, unspecified; M79.7 Fibromyalgia; I10 Essential (primary) hypertension; F17.200 Nicotine dependence, unspecified, uncomplicated; K21.9 Gastro-esophageal reflux disease without esophagitis; Z90.49 Acquired absence of other specified parts of digestive tract; Z90.89 Acquired absence of other organs; Z82.61 Family history of arthritis; Z88.2 Allergy status to sulfonamides; Z88.0 Allergy status to penicillin; Z79.899 Other long term (current) drug therapy
CPT/HCPCS: 74420; 74018; 52356; C2625; C1758; C1769; J2250; J0330; J0360; J1100; J2405; J0690 ×2; J2001; J3010; J2704; J1170

== ENCOUNTER → 2023-10-12 | Outpatient (CLI) | payer MEDICARE, OTHER ==
--- NOTE | 2023-10-19 08:58 | MM ---
Reason for Exam: Screening (asymptomatic). Last screening mammogram was performed 12 month(s) ago. Patient History: Menarche at age 14. First Full-Term at age 21. Postmenopausal. Risk Values: Ivania 5 year model risk: 1.4%. NCI Lifetime model risk: 4.6%. Prior Study Comparison: 06/12/2020 Bilateral Screening Mammogram, [facility]. 08/06/2021 Bilateral Screening Mammogram, [facility]. 10/10/2022 Bilateral MG 3D screening mammo w/cad, [facility]. Tissue Density: There are scattered areas of fibroglandular density. Findings: Analyzed By CAD. There is no suspicious group of microcalcifications or new suspicious mass in either breast. Chronic nodularity left breast. Benign appearing calcifications. Overall Assessment: Benign, BI-RAD 2 Management: Screening Mammogram of both breasts in 1 year. . Patient should continue monthly self-breast exams. A clinical breast exam by your physician is recommended on an annual basis. This exam should not preclude additional follow-up of suspicious palpable abnormalities. Note on Ivania scores and lifetime risk: 1. A Ivania score greater than 3% is considered moderate risk. If this is the case, consider specialist referral to assess eligibility for a risk reducing agent. 2. If overall lifetime risk for the development of breast cancer is 20% or higher, the patient may qualify for future screening with alternating mammogram and breast MRI. Electronically signed and approved by: Ronaldo Zhang M.D. Radiologis
== END | disposition home or self-care (01) ==
LOC: RADMAMWWP 12:39
PROVIDERS: ATTEND Family Medicine
DX: Z12.31 Encounter for screening mammogram for malignant neoplasm of breast (principal); R92.323 Mammographic fibroglandular density, bilateral breasts; Z78.0 Asymptomatic menopausal state
CPT/HCPCS: 77063; 77067

== ENCOUNTER → 2024-03-15 | Outpatient (CLI) | payer MEDICARE, OTHER ==
--- NOTE | 2024-03-15 14:46 | BD ---
EXAMINATION TYPE: Axial Bone Density DATE OF EXAM: 03/15/2024 CLINICAL HISTORY: 68 years old Female. ICD-10 CODE: Z78.0 POST MENOPAUSAL SYMPTOMS , Additional Hist ory: Height: 5 ft 1 in Weight: 146 FRAX RISK QUESTIONS: Alcohol (3 or more units per day): no Family History (Parent hip fracture): no Glucocorticoids (More than 3mos): no (Ex: prednisone, prednisolone, methylprednisolone, dexamethasone, and hydrocortisone). History of Fracture in Adulthood: yes Secondary Osteoporosis: 1. Type 1 Diabetes: no 2. Hyperthyroidism: no 3. Menopause before 45: yes 4. Malnutrition: no 5. Chronic liver disease: no Rheumatoid Arthritis: yes Current Tobacco Use: yes RISK FACTORS HISTORY OF: Surgery to Spine/Hip(right/left)/Wrist (right/left): no MEDICATIONS: Thyroid Medications: none Osteoporosis Medications: none EXAM MEASUREMENTS: Bone mineral densitometry was performed using the D1G System. Bone mineral density as measured about the Lumbar spine is: ----- L1-L4(G/cm2): 1.462 T Score Values are as follows: ----- L1: 1.5 ----- L2: 5.2 ----- L3: 3.4 ----- L4: 0.0 ----- L1-L4: 2.3 Z Score Values are as follows: ----- L1: 3.1 ----- L2: 6.8 ----- L3: 5.0 ----- L4: 1.6 ----- L1-L4: 4.0 Bone mineral density has: decreased -5.5 % since study of: 2010 Bone mineral density about the R hip (g/cm2): 0.733 Bone mineral density about the L hip (g/cm2): 0.892 T Score values are as follows: -----R Neck: -2.2 -----L Neck: -1.1 -----R Total: -1.8 -----L Total: -0.6 Z Score values are as follows: -----R Neck: -0.6 -----L Neck: 0.6 -----R Total: -0.4 -----L Total: 0.8 Bone mineral density has: decreased -13.4 % since study of: 2010 FRAX%s: The graph provided illustrates a 21.2 % chance for a major osteoporotic fx and a 6.7 % chance for the hips probability for fx in 10 years time. IMPRESSION: Normal (Values between +1 and -1 indicate normal bone mass). Consider repeating this study in 5 year s or sooner if there is some new clinical indication. NOTE: T-SCORE=SD OF THE YOUNG ADULT MEAN. [facility], , 03/15/2024 2:44 PM
== END | disposition home or self-care (01) ==
LOC: RADBDWWP 13:18
PROVIDERS: ATTEND Family Medicine
DX: M81.0 Age-related osteoporosis without current pathological fracture (principal); N95.1 Menopausal and female climacteric states
CPT/HCPCS: 77080

== ENCOUNTER → 2024-07-26 | Outpatient (CLI) | payer MEDICARE, OTHER ==
--- NOTE | 2024-07-26 17:26 | CTL ---
EXAMINATION TYPE: CT Low Dose Lung DATE OF EXAM ORDERED: 07/26/2024 COMPARISON: CTA chest 01/24/2016 CLINICAL INDICATION: Female, 69 years old with history of Z12.2, F17.210; PHH, Lung screening for pamela otine dependence of 1 ppd x 45 years, current smoker, hx of COPD and Chronic bronchitis., Lung cancer screening, History of Smoking/tobacco use. TECHNIQUE: Low dose computed tomography scan was performed through the chest at 1 mm thick sections a nd reconstructed images in multiple planes at 1 mm and [address] DLP: 88.[address] CTDI: 2.4 mGy Automated exposure control for dose reduction was used. CT DIAGNOSTIC QUALITY: Satisfactory FINDINGS: Nodules: Lingular 2.7 mm calcified granuloma (series 6, image 46). Anterior right middle lobe 5.4 mm pulmonary nodule (series 6, image 37). Stable from prior exam. Right lower lobe 2.9 mm calcified granuloma (series 4, image 208). Lateral right lower lobe 2.2 mm pulmonary nodule (series 4, image 146). LUNGS: COPD: Severity: Minimal Fibrosis: Severity: None Lymph nodes: None Other findings: None RIGHT PLEURAL SPACE: Effusion: None Calcification: None Thickening: None Pneumothorax: None LEFT PLEURAL SPACE: Effusion: None Calcification: None Thickening: None Pneumothorax: None HEART: Heart Size: Normal Coronary Calcification: None Pericardial Effusion: None OTHER FINDINGS: Upper abdomen: Gallbladder is surgically absent. Bony thorax: Dextroscoliotic curvature at the thoracolumbar junction. Multilevel degenerative disc di sease. Left shoulder arthropathy. Supraclavicular region: None Other: Mild atherosclerotic calcification of the aorta and its branches. IMPRESSION: Few pulmonary nodules measuring up to 5.[address] LUNG RAD AND CT CHEST RECOMMENDATION: Lung-Rad 2 Benign Appearance or Behavior: Continue annual sc reening with LDCT in 12 months. S Modifier (other clinically significant findings): None [facility], , 07/26/2024 5:23 PM
== END | disposition home or self-care (01) ==
LOC: RADCTMAIN 15:29
PROVIDERS: ATTEND Family Medicine
DX: Z12.2 Encounter for screening for malignant neoplasm of respiratory organs (principal); F17.210 Nicotine dependence, cigarettes, uncomplicated; R91.8 Other nonspecific abnormal finding of lung field
CPT/HCPCS: 71271

== ENCOUNTER → 2024-10-12 | Outpatient (CLI) | payer MEDICARE, OTHER ==
--- NOTE | 2024-10-12 14:32 | MM ---
Reason for Exam: Screening (asymptomatic). Last screening mammogram was performed 12 month(s) ago. Patient History: Menarche at age 14. First Full-Term at age 21. Hysterectomy at age 22. Postmenopausal. Maternal aunt had breast cancer. Maternal aunt had breast cancer. Risk Values: Ivania 5 year model risk: 1.4%. NCI Lifetime model risk: 4.3%. Prior Study Comparison: 08/06/2021 Bilateral Screening Mammogram, [facility]. 10/10/2022 Bilateral MG 3D screening mammo w/cad, [facility]. 10/12/2023 Bilateral MG 3D screening mammo w/cad, [facility]. Tissue Density: The breasts are heterogeneously dense, which may obscure small masses. Findings: Analyzed By CAD. There is no suspicious group of microcalcifications or new suspicious mass in either breast. Overall Assessment: Benign, BI-RAD 2 Management: Screening Mammogram of both breasts in 1 year. . Patient should continue monthly self-breast exams. A clinical breast exam by your physician is recommended on an annual basis. This exam should not preclude additional follow-up of suspicious palpable abnormalities. Note on Ivania scores and lifetime risk: 1. A Ivania score greater than 3% is considered moderate risk. If this is the case, consider specialist referral to assess eligibility for a risk reducing agent. 2. If overall lifetime risk for the development of breast cancer is 20% or higher, the patient may qualify for future screening with alternating mammogram and breast MRI. [facility], , 10/12/2024 2:30 PM. Electronically signed and approved by: Boston Palmer M.D. Radiologis
== END | disposition home or self-care (01) ==
LOC: RADMAMWWP 13:17
PROVIDERS: ATTEND Family Medicine
DX: Z12.31 Encounter for screening mammogram for malignant neoplasm of breast (principal); R92.333 Mammographic heterogeneous density, bilateral breasts; Z78.0 Asymptomatic menopausal state; Z80.3 Family history of malignant neoplasm of breast
CPT/HCPCS: 77063; 77067

== ENCOUNTER → 2024-10-21 | Outpatient (CLI) | payer MEDICARE, OTHER | END | disposition home or self-care (01) | LOC: LABPAT 12:32 | PROVIDERS: ATTEND Orthopaedic Surgery | DX: M17.11 Unilateral primary osteoarthritis, right knee (principal) | CPT/HCPCS: 87070 ==

== ENCOUNTER 2024-10-24 08:05 | Day surgery (SDC) | payer MEDICARE, OTHER ==
--- NOTE | 2024-10-23 14:58 | HP ---
HISTORY AND PHYSICAL DATE OF SURGERY: 10/24/2024. HISTORY OF PRESENT ILLNESS: Jefe Cid is a 69-year-old patient seen with symptomatic right knee osteoarthritis. We discussed options regarding treatment. The patient elected to proceed with right total knee arthroplasty. Consent was obtained. Medical clearance was provided by SHLOMO Ritter at Dr. Bray's officer. PAST MEDICAL HISTORY: Gastroesophageal reflux disease. PAST SURGICAL HISTORY: Noncontributory. DAILY MEDICATIONS: 1. Nexium. 2. Oxycodone. ALLERGIES: Penicillin, sulfa. SOCIAL HISTORY: She denies tobacco use. PHYSICAL EXAMINATION: Physical evaluation of the left knee, range of motion is -12 to 90 degrees. Tenderness lateral joint line. Crepitance medial and lateral patellofemoral compartment. Ligaments stable. Hip rotation without pain. Distal neurovascular exam intact. IMAGING STUDIES: Radiographs of the right knee reveal severe osteoarthritic changes. IMPRESSION: 1. Right knee severe osteoarthritis. 2. Gastroesophageal reflux disease. PLAN: Right total knee arthroplasty. MMODL / IJN: [id number] /
[~2024-10-24 08:05] MED LIST changes: -HYDROmorphone 0.5 MG/0.5 ML SYRINGE IVP PRN; +TRANEXAMIC 1,000 MG/100ML-NACL 1,000 MG in SALINE 1 100ML.BAG IVPB PRN
[2024-10-24] MEDS: LACTATED RINGERS 1,000 ML IV SCH ×2 (08:53→15:19)
[2024-10-24] MEDS: IV FLUID CONTINUATION 1,000 ML IV ONE (08:53)
[2024-10-24] MEDS: ONDANSETRON 4 MG/2 ML VIAL IVP ONE (09:05)
[2024-10-24] MEDS: ACETAMINOPHEN TAB 500 MG TAB PO PRN (09:05)
[2024-10-24] MEDS: MELOXICAM 7.5 MG TAB PO PRN (09:05)
[2024-10-24] MEDS: DEXAMETHASONE SOD PHOSPHATE 4 MG/ML 1 ML VIAL IV ONE (09:06)
[2024-10-24] MEDS: MIDAZOLAM 2 MG/2 ML VIAL IV ONE (09:20)
[2024-10-24] MEDS ORDERED: NEOSTIGMINE 1 MG/ML 10 ML VIAL ONE (10:30)
[2024-10-24] MEDS ORDERED: PHENYLEPHRINE 10 MG/ML VIAL ONE (10:30)
[2024-10-24] MEDS ORDERED: HYDROmorphone (PF) 1 MG/ML ONE (10:30)
[2024-10-24] MEDS ORDERED: LABETALOL 5 MG/ML VIAL MDV ONE (10:30)
[2024-10-24] MEDS ORDERED: ROCURONIUM 10 MG/ML (5 ML VIAL) IV ONE (10:30)
[2024-10-24] MEDS ORDERED: hydrALAZINE HCL 20 MG/ML 1 ML VIAL ONE (10:30)
[2024-10-24] MEDS ORDERED: GLYCOPYRROLATE 0.2 MG/ML 2 ML VIAL ONE (10:30)
[2024-10-24] MEDS ORDERED: SUCCINYLCHOLINE CHLORIDE 200 MG/10 ML VIAL IV ONE (10:30)
[2024-10-24] MEDS ORDERED: DEXAMETHASONE SOD PHOSPHATE 4 MG/ML 1 ML VIAL ONE (10:30)
[2024-10-24] MEDS ORDERED: fentaNYL (PF) 50 MCG/ML 2 ML AMP ONE (10:30)
[2024-10-24] MEDS ORDERED: MIDAZOLAM 2 MG/2 ML VIAL ONE (10:30)
[2024-10-24] MEDS ORDERED: TRANEXAMIC 1,000 MG/100ML-NACL PREMIX BAG ONE (10:30)
[2024-10-24] MEDS ORDERED: ROPIVACAINE 5 MG/ML 30 ML VIAL ONE (10:30)
[2024-10-24] MEDS ORDERED: PROPOFOL 10 MG/ML 20 ML VIAL IV ONE (10:30)
[2024-10-24] MEDS ORDERED: LIDOCAINE 1% INJ 10MG/ML (20 ML MDV) ONE (10:30)
[2024-10-24] MEDS: LACTATED RINGERS 1,000 ML IV ONE (12:17)
[2024-10-24] MEDS ORDERED: HYDROcodone/APAP 7.5-325MG 1 EACH TAB PO PRN (12:27)
[2024-10-24] MEDS ORDERED: HYDROmorphone 0.5 MG/0.5 ML SYRINGE IVP PRN (12:27)
[2024-10-24] MEDS ORDERED: HYDROcodone/APAP 5-325MG 1 EACH TAB PO PRN (12:27)
[2024-10-24] MEDS ORDERED: NALOXONE 0.4 MG/ML 1 ML VIAL IV PRN (12:27)
--- NOTE | 2024-10-24 12:27 | P.OP ---
Date of Procedure: 10/24/24 Preoperative Diagnosis: Right knee osteoarthritis Postoperative Diagnosis: Right knee osteoarthritis Procedure(s) Performed: Right total knee arthroplasty Implants: 1. DePuy attune size 4 narrow right cruciate retaining cemented femur 2. DePuy attune size 4 fixed-bearing cemented tibial baseplate 3. DePuy attune size 4 fixed-bearing cruciate retaining 5 mm polyethylene tibial insert 4. DePuy attune 35 mm all polyethylene cemented patella Anesthesia: GETA, regional (Adductor canal catheter, iPAQ block) Surgeon: Ben Bolivar Animal Rehabilitator #1: Jean Coronado Estimated Blood Loss (ml): 45 Pathology: none sent Condition: stable Disposition: PACU Indications for Procedure: 69-year-old patient seen with symptomatic right knee osteoarthritis. After having treatment options discussed, she elected to proceed with total knee arthroplasty. Operative Findings: See description of procedure Description of Procedure: Patient was taken to the operative suite after having an adductor canal catheter placed by the department of anesthesia. Patient underwent a general anesthetic by the department of anesthesia. Patient was given preoperative IV intake antibiotics and TXA. A well-padded tourniquet was placed about the right lower extremity. The lower extremity was then prepped and draped in the normal sterile orthopedic fashion. The extremity was elevated, a tourniquet was insufflated to 300. A standard anterior incision was made sharply through skin. Dissection was taken down through the subcutaneous soft tissues down to the extensor mechanism. A medial arthrotomy was performed, patella was everted and knee was flexed. There was advanced osteoarthritis noted. I introduced my distal intramedullary femoral drill. I then introduced the distal femoral cutting jig. Jonny KEENAN secured the cutting jig with 2 pins. I held retractors in position while Jonny KEENAN performed the distal femoral resection through the guide area we now removed her distal femoral cutting guide. We now placed our 4-in-1 femoral cutting block and positioned and it was secured with 2 pins by Jonny KEENAN while I held the block in position. The distal femoral finishing was now completed. A proximal tibial cutting guide was positioned. I held the guide in the appropriate position with both hands while Jonny KEENAN inserted stabilizing pins into the guide. Proximal tibial cut was made. We now placed a trial femoral component into position, along with an appropriate size tibial tray and insert. We now took the knee through range of motion and had full extension good flexion and good overall soft tissue balance noted. The patella was everted and stabilized with 2 towel clips held by Jonny KEENAN while I performed a flush with patellar quad tendon utilizing a fresh sawblade. We templated the patella, appropriate drill holes were made. An appropriate trial patella was positioned, knee was taken through full range of motion with the patella tracking very nicely. The trial patella was removed. Drill holes were made through the femoral component. All trial components were removed after marking off the appropriate rotation of the tibia. Retractors were now positioned along the proximal tibia. An appropriate keel punch was made with the appropriate size tibial guide by myself on Jonny KEENAN assisted by holding retractors. At this point appropriate size implants were chosen and opened. The joint was irrigated copiously with pulse lavage mechanical irrigation. The wound was irrigated with pulse lavage mechanical irrigation. W e mixed antibiotic methylmethacrylate. We placed the knee into flexion. We placed multiple retractors assisted by Jonny KEENAN to expose the proximal tibia. Once the methyl methacrylate was ready, the tibial component was cemented into place removing any excess methylmethacrylate form by both myself and Jonny KEENAN. The femoral component was cemented into place removing the removing any excess methylmethacrylate performed by both myself and Jonny KEENAN. We then inserted the appropriate size polyethylene tibial insert. We made sure that it was locked into position. We took the knee into full extension, and then back in a flexion making sure we had removed any excess methylmethacrylate. The patellar component was then cemented down and secured with clamp. Excess methylmethacrylate removed. We kept the knee in full extension, patellar clamp in position until methylmethacrylate had hardened. Once it had hardened the patellar clamp was removed. The knee was taken through full range of motion. The patella tracked nicely. There was good soft tissue balancing. The tourniquet was now released. Additional hemostasis was achieved via electrocautery. A second gram of TXA was given. The wound again was irrigated with pulse lavage mechanical irrigation. The extensor mechanism was repaired with Ethibond suture. We checked the repair with range of motion and it was stable. The subcutaneous soft tissues were repaired with Vicryl in layers. The skin was approximated with pernio/Dermabond. Sterile dressings were applied followed by loose web roll and Willem bandage. The patient was transferred to a bed, and taken to recovery in stable and satisfactory condition. Jonny KEENAN assisted with this complex procedure.
[2024-10-24] MEDS ORDERED: oxyCODONE ER 10 MG TAB.ER.12H PO SCH (13:00)
--- NOTE | 2024-10-24 13:22 | XR ---
EXAMINATION TYPE: XR knee limited RT DATE OF EXAM: 10/24/2024 1:13 PM INDICATION: Patient age:Female; 69 years old; Reason for study: Evaluation for Postop abnormality and alignment; PHH. pain COMPARISON: Right knee radiographs 09/13/2024 TECHNIQUE: The Right knee(s) was examined in frontal and lateral projections. FINDINGS: Status post total knee arthroplasty changes with hardware in appropriate alignment and in tact. No evidence of fracture. Subcutaneous lucencies and lucencies within the joint consistent with surgical changes. IMPRESSION: Status post total knee arthroplasty changes with hardware intact and appropriate alignment. No fractu res identified. [facility], , 10/24/2024 1:20 PM
[2024-10-24] MEDS: hydrALAZINE HCL 20 MG/ML 1 ML VIAL IVP STA (13:29)
[2024-10-24] MEDS: HYDROmorphone 0.5 MG/0.5 ML SYRINGE IVP PRN ×2 (14:03→15:16)
[2024-10-24] MEDS ORDERED: TIOTROPIUM 2.5 MCG INHALER INHALATION SCH (21:00)
[2024-10-24] MEDS: ASPIRIN 81 MG PO SCH (21:02)
[2024-10-24] MEDS: SENNOSIDES-DOCUSATE SODIUM 1 EACH TAB PO SCH (21:03)
[2024-10-24] MEDS: PREGABALIN 75 MG CAP PO SCH (21:03)
[2024-10-24] MEDS: QUEtiapine 400 MG TAB PO SCH (21:03)
[2024-10-24] MEDS: PANTOPRAZOLE 40 MG TABLET PO SCH (21:03)
[2024-10-24] MEDS: ONDANSETRON 4 MG/2 ML VIAL IVP PRN (22:47)
[2024-10-25] MEDS: BACLOFEN 10 MG TAB PO PRN (00:28)
[2024-10-25] MEDS: ALPRAZolam 0.25 MG TAB PO PRN (00:28)
[2024-10-25] MEDS: HYDROmorphone 0.5 MG/0.5 ML SYRINGE IVP PRN (06:44)
[2024-10-25 08:26] LABS: Basophils # (A) 0.01 X 10*3/uL (0.00-0.10); Basophils % (A) 0.1 %; Eosinophils # (A) 0 X 10*3/uL (0.04-0.35); Eosinophils % (A) 0 %; HCT 39.0 % (37.2-46.3); HGB 13.0 g/dL (12.0-15.0); Immature Grans, Automated 0.40 %; Lymphocytes # (A) 1.18 X 10*3/uL (0.90-5.00); Lymphocytes % (A) 10.9 %; MCH 30.7 pg (27.0-32.0); MCHC 33.3 g/dL (32.0-37.0); MCV 92.2 FL (80.0-97.0); Monocytes # (A) 0.89 X 10*3/uL (0.20-1.00); Monocytes % (A) 8.2 %; NRBC Per 100 WBC 0 X 10*3/uL (0.00-0.01); Neutrophils # (A) 8.69 X 10*3/uL (1.80-7.70); Neutrophils % (A) 80.4 %; Platelet Count 205 X 10*3/uL (140-440); RBC 4.23 X 10*6/uL (4.10-5.20); RDW 14.6 % (11.5-14.5); WBC 10.81 X 10*3/uL (4.50-10.00)
[2024-10-25] MEDS: TIOTROPIUM 2.5 MCG INHALER INHALATION SCH (08:39)
[2024-10-25 09:44] VITALS: BP 126/70; PULSE 76; RESP 18; TEMP 98.4
--- NOTE | 2024-10-25 11:47 | P.PN ---
Progress Note - Text 10/25/24 643m 69-year-old female status post total knee replacement. Patient has an On-Q pump for postop pain control with a solution running at 8 cc with a VAS of 2. Dressing clean dry and intact. Plan to continue On-Q pump fusion
--- NOTE | 2024-10-25 11:48 | P.ANPRN ---
Procedure Note - Anesthesia - Nerve Block Performed Right Adductor Canal Infusion Time Out Performed: Yes Date of Procedure: 10/24/24 Procedure Start Time: : Procedure Stop Time: Location of Patient: PreOp Indication: Acute Post-Operative Pain, Requested by Surgeon Sedation Type: Sedate with meaningful contact maintained Preparation: Sterile Prep, Sterile Dressing Position: Supine Catheter: Indwelling Needle Types: On-Q Ultrasound used to visualize needle placement: Yes Ultrasound used to observe medication spread: Yes Blood Aspirated: No Pain Paresthesia on Injection Noted: No Resistance on Injection: Normal Image Stored and Saved: Yes Events: Uneventful and Well Tolerated (Ropivacaine 0.5% 20 cc plus dexamethasone 4 mg)
--- NOTE | 2024-10-25 11:49 | P.ANPRN ---
Procedure Note - Anesthesia - Nerve Block Performed Right iPack Single Time Out Performed: Yes Date of Procedure: 10/24/24 Procedure Start Time: Procedure Stop Time: Location of Patient: PreOp Indication: Acute Post-Operative Pain, Requested by Surgeon Sedation Type: Sedate with meaningful contact maintained Preparation: Sterile Prep Position: Left Lateral Needle Types: Pajunk Needle Gauge: 21 Ultrasound used to visualize needle placement: Yes Ultrasound used to observe medication spread: Yes Blood Aspirated: No Pain Paresthesia on Injection Noted: No Resistance on Injection: Normal Image Stored and Saved: Yes Events: Uneventful and Well Tolerated (Ropivacaine 0.5% 20 cc plus dexamethasone 4 mg)
--- NOTE | 2024-10-25 13:33 | P.PN ---
Subjective Progress Note Date: 10/25/24 Principal diagnosis: Status status post right total knee arthroplasty Patient evaluated at bedside, she is resting in her hospital bed. Patient did very well with physical therapy. Patient has been urinating well since surgery. She denies headaches, lightheadedness, chest pain or shortness of breath Objective - Vital Signs Vital signs: Vital Signs Temp 98.4 F 10/25/24 08:00 Pulse 76 10/25/24 08:00 Resp 18 10/25/24 08:00 BP 126/70 10/25/24 08:00 Pulse Ox 96 10/25/24 08:00 FiO2 Intake & Output 10/24/24 10/25/24 10/25/24 18:59 06:59 18:59 Intake Total 1450 Output Total 45 Balance 1405 Weight 96.9 kg Intake: IV 1450 Output: Estimated Blood Loss 45 Other: Voiding Method Bedside Commode # Voids 1 3 - Exam Right lower extremity: Incision is clean, dry, and intact. The foam dressing is in good condition. There is minimal soft tissue swelling and ecchymosis surrounding the medial and lateral aspects of the incision. Calf is soft, no tenderness with palpation. Plantar flexion, dorsiflexion, EHL, FHL are intact. Sensory exam to light touch throughout the extremity is intact, dorsal pedis pulses 2+. - Labs CBC & Chem 7: 10/25/24 03:26 Labs: Abnormal Lab Results - Last 24 Hours (Table) 10/25/24 Range/Units 03:26 WBC 10.81 H (4.50-10.00) X 10*3/uL RDW 14.6 H (11.5-14.5) % Neutrophils # 8.69 H (1.80-7.70) X 10*3/uL Eosinophils # 0 L (0.04-0.35) X 10*3/uL Assessment and Plan Assessment: Postoperative day #1 status post right total knee arthroplasty Plan: Pain control, patient will resume her normally prescribed pain medication DVT prophylaxis, aspirin 81 mg twice a day for 30 days Wound care instructions discussed, this to include bandaging instructions, showering instructions, icing and elevating, On-Q pain catheter Weight-bear as tolerated with walker Medical recommendations appreciated Discharge planning: Patient stable for discharge home today Time with Patient: Less than 30
--- NOTE | 2024-10-25 13:36 | P.DS ---
Providers Date of admission: 10/24/2024 Expected date of discharge: 10/25/24 Attending physician: Ben Kumar Consults: 10/24/24 12:27 Consult Physician Routine Consulting Provider: Bassem Bray Consult Reason/Comments: Medical management Do you want consulting provider notified?: Yes Primary care physician: Bassem Bray Hospital Course: Date of admission: 10/24/2024 Date of discharge: 10/25/2024 Admission diagnosis: Status post right total knee arthroplasty Discharge diagnosis: Same Attending physician: Dr. kumar Surgical procedures: Right total knee arthroplasty Brief history: Patient is a 69-year-old female with a history of progressive primary right knee osteoarthritis. At this point patient has failed conservative treatment measures and has opted to proceed with a elective right total knee arthroplasty. Hospital course: Details of patient's surgery can be found in operative report. Patient tolerated the procedure well and was subsequently transported to orthopedic floor. Patient's orthopeidc and medical care was provided daily. Patient had daily laboratory tests performed for evaluation of overall blood counts. Patient had daily physical therapy to include strengthening range of motion as well as education with walker ambulation. Patient was treated with aspirin for their postoperative DVT prophylaxis during their inpatient stay. Patient was noted to have a relatively uneventful postoperative course. Patient reported satisfactory pain control with oral pain medications by postoperative day 0. Patient showed satisfactory progress with physical therapy. Patient moved steadily through the program and had no difficulty meeting the goals by postoperative day 1. Given patient's otherwise satisfactory course and having met physical therapy goals, plan is to discharge patient home on postoperative day 1. Discharge condition/disposition: Patient will be discharged home in stable condition. Discharge medications: Instructions are given on resumption of patient's normal daily medications per primary care recommendation, in addition patient will be prescribed aspirin 81mg. Discharge instructions: 1. Wound care and infection precautions, keep incision dry and covered while showering, no lotions, creams, moisturizers. No soaking, tubs, pools, hottubs. Do not scrub over the incision. 2. Weight-bear as tolerated with walker / cane until follow-up. 3. Ice and elevate when necessary. Do not exceed 20 minutes per hour with ice pack. 4. Utilize compression sleeve until seen at first follow up appointment. 5. Visiting nursing care. 6. Home physical therapy including home CPM. 7. Pain meds and anticoagulants per prescription. 8. Pain medication has potential to cause constipation. Increase oral fluid and fiber intake. Contact primary care provider if you have not had a bowel movement within 48 hours after discharge 9. No anti-inflammatory medication until discussed at first post operative vis it, this including Motrin, Aleve, Mobic, Diclofenac. 10. Follow up in office at 2 weeks postop with Jonny Coronado PA-C/Martín Vargas 11. Follow up with your primary care doctor 7-10 days after discharge. 12. Contact [facility] with any questions, . Procedures: Right total knee arthroplasty Patient Condition at Discharge: Good Plan - Discharge Summary Discharge Rx Participant: Yes New Discharge Prescriptions: New Aspirin [Adult Low Dose Aspirin EC] 81 mg PO BID #60 tab No Action Esomeprazole Magnesium [NexIUM] 20 mg PO HS oxyCODONE HCL [Oxycodone HCl ER] 10 mg PO QID QUEtiapine [SEROquel] 400 mg PO HS Baclofen 10 mg PO HS Multivitamin/Iron/Folic Acid [Centrum Women Tablet] 1 each PO DAILY Albuterol Sulfate [Ventolin HFA] 1 - 2 puff INHALATION Q6H PRN PRN Reason: Shortness Of Breath Umeclidinium [place] [Incruse Ellipta] 1 puff INHALATION HS traZODone HCL 100 mg PO HS Pregabalin [Lyrica] 100 mg PO BID ALPRAZolam [Xanax] 0.25 mg PO DAILY PRN PRN Reason: Anxiety Discharge Medication List Esomeprazole Magnesium [NexIUM] 20 mg PO HS 04/10/14 [History] oxyCODONE HCL [Oxycodone HCl ER] 10 mg PO QID 04/17/14 [History] QUEtiapine [SEROquel] 400 mg PO HS 09/13/14 [History] Baclofen 10 mg PO HS 03/21/20 [History] Multivitamin/Iron/Folic Acid [Centrum Women Tablet] 1 each PO DAILY 03/21/20 [History] Albuterol Sulfate [Ventolin HFA] 1 - 2 puff INHALATION Q6H PRN 05/26/23 [History] Umeclidinium [place] [Incruse Ellipta] 1 puff INHALATION HS 05/26/23 [History] Pregabalin [Lyrica] 100 mg PO BID 05/28/23 [History] ALPRAZolam [Xanax] 0.25 mg PO DAILY PRN 10/21/24 [History] traZODone HCL 100 mg PO HS 10/21/24 [History] Aspirin [Adult Low Dose Aspirin EC] 81 mg PO BID #60 tab 10/25/24 [Rx] Follow up Appointment(s)/Referral(s): [facility],Equipment [NON-STAFF] - As Needed (*Call [facility] once home to arrange delivery of the Continuous Passive Motion (CPM) machine. ) [facility], [NON-STAFF] - 1-2 Days ([facility] will call you to schedule your in home physical therapy and nursing visits.) Jean Coronado PAC [PHYSICIAN BARREL PLANER] - 2 Weeks Activity/Diet/Wound Care/Special Instructions: Orthopedic Discharge Instructions: 1. Wound care and infection precautions, keep incision dry and covered while showering, no lotions, creams, moisturizers. No soaking, pools, hot tubs. Do not scrub over incision. 2. Weight-bear as tolerated with walker / cane until follow-up. 3. Ice and elevate when necessary. Do not exceed 20 minutes per hour with ice pack. 4. Utilize compression sleeve until seen at first follow up appointment. 5. Pain meds and anticoagulants per prescription. 6. Pain medication has potential to cause constipation. Increase oral fluid and fiber intake. Contact primary care provider if you have not had a bowel movement within 48 hours after discharge. 7. No anti-inflammatory medication until discussed at first post operative visit, this including Motrin, Aleve, Mobic, Diclofenac 8. Follow up in office at 2 weeks postop with Jonny Coronado PA-C/Martín Goss PA-C 9. Follow up with your primary care doctor 7-10 days after discharge. 10. Contact [facility] with any questions, . Wound care instructions: 1. Okay to remove surgical dressing as of 11/02/2024 2. Okay to shower directly over the incision after removal of dressing Discharge Disposition: HOME WITH HOME HEALTH SERVICES
[2024-10-25] MEDS: MULTIVITAMINS, THERA 1 EACH TAB PO SCH (13:38)
--- NOTE | 2024-10-25 14:05 | CONS ---
CONSULTATION CHIEF COMPLAINT: Arthritis, right knee. HISTORY OF PRESENT ILLNESS: This is another admission for this 69-year-old female, who is in for an elective right TKA. She is in fairly good health. She does smoke. She denies any headaches, neurologic problems, chest pain, fever, chills, shortness of breath, urinary complaints, etc. Past medical history, family history, personal and social histories reveal that she is allergic to sulfa and penicillin. She takes trazodone, albuterol, PPI, montelukast, Spiriva, Xanax, baclofen, pregabalin, Seroquel, and oxycodone. She does smoke, but does not drink alcohol. PHYSICAL EXAMINATION: VITAL SIGNS: Blood pressure is 128/72, pulse 59, respirations 16 and she is afebrile. GENERAL: She appeared to be in no acute distress. Skin color is normal and skin is dry. HEAD, EARS, EYES, NOSE, MOUTH AND THROAT: Were normal. Neck veins not distended. Thyroid was not enlarged. CHEST: Clear. There are no rales or rhonchi. CARDIAC: Normal with normal sinus rhythm. There are no murmurs or extra sounds. ABDOMEN: Soft, nontender. EXTREMITIES: Normal except for the right knee. NEUROLOGIC: She is intact. IMPRESSION: 1. Osteoarthritis of the right knee. 2. Nicotine use. 3. Chronic obstructive pulmonary disease. RECOMMENDATIONS: None. Thank you respectfully. SYDNEY / XAVIER: [phone] /
== END 2024-10-25 14:25 | disposition home health service (06) ==
LOC: OR 08:05 → 4SSUR 13:11 → OR 10-25 14:25
PROVIDERS: ATTEND Orthopaedic Surgery
DX: M17.11 Unilateral primary osteoarthritis, right knee (principal); K21.9 Gastro-esophageal reflux disease without esophagitis; Z88.2 Allergy status to sulfonamides; G89.18 Other acute postprocedural pain; J44.9 Chronic obstructive pulmonary disease, unspecified; Z79.82 Long term (current) use of aspirin
CPT/HCPCS: 27447; 64473 ×2; 94640; 97161; 64448; 85025; 73560; C1776; C1713 ×2; C1751; J2250; J0330; J0360; J1100; J2710; J0690 ×2; J2405; J2003; J3010; J1171 ×3; J2795; J2704; J2371; J1920; J1596